=== PATIENT | male | born 1960 | race Caucasian/White ===

== ENCOUNTER 2021-10-26 18:20 | Emergency (ER) | payer OTHER ==
--- OUTSIDE RECORDS SUMMARY | 2021-10-26 18:23 | XMS REPORT | Continuity of Care Document ---
:1960 Author Organization [facility] t Address [address] [place] [address] Care Team Providers Name Role Phone Pcp, Patient Does Not Have A Primary Care Physician [id number] Anne Marie Gautam RN Attending Clinician Unavailable Only, Ang Db Test Attending Clinician Unavailable Mesfin Morales Attending Clinician MESFIN ROUSSEAU Attending Clinician Unavailable CHAVA DELUCA Attending Clinician Unavailable Payers Payer Name Policy Type Policy Number Effective Date Expiration Date S ource Problems This patient has no known problems. Allergies, Adverse Reactions, Alerts Allergy Allergy Status Severity Reaction(s) Onset Inactive Treating Comm ents Source Name Type Date Date Clinician NO KNOWN Drug Active [facility]IE Class [facility] of [facility] Social History Social Habit Start Date Stop Date Quantity Comments Source Exposure to Yes [facility] SARS-CoV-2 (event) [facility] Sex Assigned At [birth year] [facility] 00:00:00 00:00:00 [facility] Smoking Status Start Date Stop Date Source Unknown if ever smoked [facility] Medications This patient has no known medications. Immunizations Ordered Filled Immunization Date Status Comments Mariela e Immunization Name Name SARS-COV-2 COVID-19 2020-06-30 Completed Unive rsity of [facility]ER [facility] 00:00:00 [facility] SARS-COV-2 COVID-19 2020-06-30 Completed Unive rsity of PFIZER VACCINE 00:00:00 [facility] SARS-COV-2 COVID-19 2020-06-10 Completed Unive rsity of PFIZER VACCINE 00:00:00 [facility] SARS-COV-2 COVID-19 2020-06-10 Completed Unive rsity of PFIZER VACCINE 00:00:00 [facility] Procedures This patient has no known procedures. Encounters Start End Encounter Admission Attending Care Care Encounter Source Date/Time Date/Time Type Type Clinicians Facility Department ID 2021-04-17 2021-04-17 Letter DainYULY canchola [id number] [facility] 00:00:00 00:00:00 (Out) Anne Marie DALAL [id number] it y of [facility] [id number] Emery as [id number] [address] 2021-04-16 2021-04-16 Laboratory Only, Ang Db Test [facility] [id number] Univers 12:00:00 12:15:00 Only Chan Mesfin [facility] [id number] ity [facility] [id number] Emery as ZACHARY?BLEA [id number] [address] MED[facility] 2021-04-16 2021-04-16 Outpatient Hortensia ROUSSEAU [facility] [id number] Univers 12:00:00 12:00:00 MESFIN [facility] 2020-06-30 2020-06-30 Outpatient Hortensia DELUCA [facility] [id number] Univers 13:00:00 12:23:55 CHAVA [facility] Results This patient has no known results.
[2021-10-26] MEDS ORDERED: HYDROCODONE/APAP 5/325 MG TAB ONE (18:54)
--- NOTE | 2021-10-26 19:53 | RAD REPORT ---
EXAM DESCRIPTION: RAD - Nasal Bones - 10/26/2021 7:36 pm CLINICAL HISTORY: Facial pain FINDINGS: An acute nasal bone fracture is not visualized
--- NOTE | 2021-10-26 20:05 | ER ---
Nurse's Notes [facility] Name: Vaughn Pham Age: 61 yrs Sex: Male : 1960 Arrival Date: 10/26/2021 Time: 18:22 Bed 17 Private MD: Diagnosis: Other specified disorders of nose and nasal sinuses;Contusion of nose Presentation: 10/26 18:29 Chief complaint: Patient states: "I was tightening up a bedpost and it came up and ss popped me in the nose. I heard a crack." No active bleeding noted at this time. Pt applied pressure with towel. Moderate amount of blood noted to towel. Coronavirus screen: Client denies travel out of the [place] in the last 14 days. Ebola Screen: Patient denies exposure to infectious person. Patient denies travel to an Ebola-affected area in the 21 days before illness onset. Initial Sepsis Screen: Does the patient meet any 2 criteria? No. Patient's initial sepsis screen is negative. Does the patient have a suspected source of infection? No. Patient's initial sepsis screen is negative. Risk Assessment: Do you want to hurt yourself or someone else? Patient reports no desire to harm self or others. Onset of symptoms was October 26, 2021. 18:29 Method Of Arrival: Ambulatory ss 18:29 Acuity: VINOD 4 ss Triage Assessment: 18:30 General: Appears in no apparent distress. Behavior is calm, cooperative, appropriate bp for age. Pain: Complains of pain in nose. EENT: NOSE SWOLLEN/RED, MINIMAL BLEEDING. Neuro: No deficits noted. Cardiovascular: No deficits noted. Respiratory: No deficits noted. GI: No signs and/or symptoms were reported involving the gastrointestinal system. : No signs and/or symptoms were reported regarding the genitourinary system. Derm: No deficits noted. Musculoskeletal: No deficits noted. Historical: - Allergies: 18:33 No Known Allergies; ss - Immunization history:: Adult Immunizations up to date. - Social history:: Smoking status: Patient denies any tobacco usage or history of. Screenin:45 Abuse screen: Denies threats or abuse. Denies injuries from another. Nutritional bp screening: No deficits noted. Tuberculosis screening: No symptoms or risk factors identified. Fall Risk None identified. Assessment: 18:45 General: SEE TRIAGE NOTE. bp 19:15 Reassessment: Patient appears in no apparent distress at this time. Patient and/or jb4 family updated on plan of care and expected duration. Pain level reassessed. Patient is alert, oriented x 3, equal unlabored respirations, skin warm/dry/pink. 20:06 Reassessment: Patient appears in no apparent distress at this time. Patient and/or jb4 family updated on plan of care and expected duration. Pain level reassessed. Patient is alert, oriented x 3, equal unlabored respirations, skin warm/dry/pink. Vital Signs: 18:29 BP 141 / 89; Pulse 103; Resp 16; Temp 97.9(TE); Pulse Ox 97% on R/A; Weight 92.99 kg; ss Height 5 ft. 9 in. (175.26 cm); Pain 4/10; 20:15 BP 148 / 98; Pulse 87; Resp 16; Pulse Ox 98% on R/A; jb4 18:29 Body Mass Index 30.27 (92.99 kg, 175.26 cm) ss [place] Score: 18:33 Eye Response: spontaneous(4). Verbal Response: oriented(5). Motor Response: obeys snw commands(6). Total: 15. 18:34 Eye Response: spontaneous(4). Verbal Response: oriented(5). Motor Response: obeys snw commands(6). Total: 15. ED Course: 18:22 Patient arrived in ED. hb 18:22 Wendi Calle F[facility]-C [facility]. snw 18:22 Joshua Erwin MD is Attending Physician. snw 18:33 Jevon Vernon, ANTONI is Primary Nurse. bp 18:33 Triage completed. ss 18:33 Arm band placed on right wrist. ss 18:45 Patient has correct armband on for positive identification. Bed in low position. Call bp light in reach. Side rails up X2. Adult w/ patient. 19:38 Nasal Bones XRAY In Process Unspecified. EDMS 20:15 No provider procedures requiring assistance completed. Patient did not have IV access jb4 during this emergency room visit. Administered Medications: 18:45 Drug: HYDROcodone-acetaminophen 5 mg-325 mg 1 tabs Route: PO; bp Medication: 18:45 VIS not applicable for this client. bp Outcome: 20:05 Discharge ordered by MD. pizarro 20:15 Discharged to home ambulatory. jb4 20:15 Condition: stable 20:15 Discharge instructions given to patient, Instructed on discharge instructions, follow up and referral plans. medication usage, Demonstrated understanding of instructions, follow-up care, medications, Prescriptions given X 1. 20:17 Patient left the ED. jb4 Signatures: Dispatcher [employer] EDMS Wendi Calle, PREHEMMER-C PREHEMMER-Csnw Ivis Mckeon RN RN Adrianna Gambino RN RN George Lindsey RN RN jb4 Jevon Vernon RN RN bp Corrections: (The following items were deleted from the chart) 18:34 18:33 Home Meds: None; [facility]
--- NOTE | 2021-10-26 20:06 | EDPHYS ---
Physician Documentation [facility] Name: Vaughn Pham Age: 61 yrs Sex: Male : 1960 Arrival Date: 10/26/2021 Time: 18:22 Bed 17 Private MD: ED Physician Joshua Erwin HPI: 10/26 18:33 This 61 yrs old Male presents to ER via Ambulatory with complaints of nasal fracture. snw 18:33 The patient or guardian reports injury, swelling, tenderness. The complaints affect the snw nose. Context of injury: The problem was sustained at home, resulted from a direct blow, a heavy object. Onset: The symptoms/episode began/occurred suddenly, just prior to arrival. Associated signs and symptoms: The patient has no apparent associated signs or symptoms. Severity of symptoms: At their worst the symptoms were moderate, just prior to arrival. The patient has not experienced similar symptoms in the past. The patient has not recently seen a physician. up to date on tetanus. Historical: - Allergies: 18:33 No Known Allergies; ss - Immunization history:: Adult Immunizations up to date. - Social history:: Smoking status: Patient denies any tobacco usage or history of. ROS: 18:32 Constitutional: Negative for fever, chills, and weight loss, Eyes: Negative for injury, snw pain, redness, and discharge, Neck: Negative for injury, pain, and swelling, Cardiovascular: Negative for chest pain, palpitations, and edema, Respiratory: Negative for shortness of breath, cough, wheezing, and pleuritic chest pain, Abdomen/GI: Negative for abdominal pain, nausea, vomiting, diarrhea, and constipation, Back: Negative for injury and pain, : Negative for injury, bleeding, discharge, and swelling, MS/Extremity: Negative for injury and deformity, Skin: Negative for injury, rash, and discoloration, Neuro: Negative for headache, weakness, numbness, tingling, and seizure, Psych: Negative for depression, anxiety, suicide ideation, homicidal ideation, and hallucinations. 18:32 ENT: Positive for injury or acute deformity, contusion, nose bleed. Exam: 18:32 Constitutional: This is a well developed, well nourished patient who is awake, alert, snw and in no acute distress. Eyes: Pupils equal round and reactive to light, extra-ocular motions intact. Lids and lashes normal. Conjunctiva and sclera are non-icteric and not injected. Cornea within normal limits. Periorbital areas with no swelling, redness, or edema. ENT: Nares patent. No nasal discharge, no septal abnormalities noted. Tympanic membranes are normal and external auditory canals are clear. Oropharynx with no redness, swelling, or masses, exudates, or evidence of obstruction, uvula midline. Mucous membranes moist. Neck: Trachea midline, no thyromegaly or masses palpated, and no cervical lymphadenopathy. Supple, full range of motion without nuchal rigidity, or vertebral point tenderness. No Meningismus. Chest/axilla: Normal chest wall appearance and motion. Nontender with no deformity. No lesions are appreciated. Cardiovascular: Regular rate and rhythm with a normal S1 and S2. No gallops, murmurs, or rubs. Normal PMI, no JVD. No pulse deficits. Respiratory: Lungs have equal breath sounds bilaterally, clear to auscultation and percussion. No rales, rhonchi or wheezes noted. No increased work of breathing, no retractions or nasal flaring. Abdomen/GI: Soft, non-tender, with normal bowel sounds. No distension or tympany. No guarding or rebound. No evidence of tenderness throughout. Back: No spinal tenderness. No costovertebral tenderness. Full range of motion. Skin: Warm, dry with normal turgor. Normal color with no rashes, no lesions, and no evidence of cellulitis. MS/ Extremity: Pulses equal, no cyanosis. Neurovascular intact. Full, normal range of motion. Neuro: Awake and alert, GCS 15, oriented to person, place, time, and situation. Cranial nerves II-XII grossly intact. Motor strength 5/5 in all extremities. Sensory grossly intact. Cerebellar exam normal. Normal gait. Psych: Awake, alert, with orientation to person, place and time. Behavior, mood, and affect are within normal limits. 18:32 Head/face: Noted is swelling, that is moderate, tenderness, that is mild, of the nose, no septal hematoma or visible cartilage . Vital Signs: 18:29 BP 141 / 89; Pulse 103; Resp 16; Temp 97.9(TE); Pulse Ox 97% on R/A; Weight 92.99 kg; ss Height 5 ft. 9 in. (175.26 cm); Pain 4/10; 20:15 BP 148 / 98; Pulse 87; Resp 16; Pulse Ox 98% on R/A; jb4 18:29 Body Mass Index 30.27 (92.99 kg, 175.26 cm) ss [place] Score: 18:33 Eye Response: spontaneous(4). Verbal Response: oriented(5). Motor Response: obeys snw commands(6). Total: 15. 18:34 Eye Response: spontaneous(4). Verbal Response: oriented(5). Motor Response: obeys snw commands(6). Total: 15. MDM: 18:22 Patient medically screened. wendie 18:34 Data reviewed: vital signs, nurses notes. Counseling: I had a detailed discussion with snw the patient and/or guardian regarding: the presence of at least one elevated blood pressure reading (>120/80) during this emergency department visit, radiology results, the need for outpatient follow up, to return to the emergency department if symptoms worsen or persist or if there are any questions or concerns that arise at home. Special discussion: Based on the history and exam findings, there is no indication for further emergent testing or inpatient evaluation. I discussed with the patient/guardian the need to see the primary care provider for further evaluation of the symptoms. 10/26 18:31 Order name: Nasal Bones XRAY; Complete Time: 20:01 snw Administered Medications: 18:45 Drug: HYDROcodone-acetaminophen 5 mg-325 mg 1 tabs Route: PO; bp Disposition Summary: 10/26/21 20:05 Discharge Ordered Location: Home snw Condition: Stable snw Diagnosis - Other specified disorders of nose and nasal sinuses snw - Contusion of nose snw Followup: snw - With: Emergency Department - When: As needed - Reason: Worsening of condition Followup: snw - With: Private Physician - When: 2 - 3 days - Reason: Recheck today's complaints, Continuance of care, Re-evaluation by your physician Discharge Instructions: - Discharge Summary Sheet snw - Contusion snw - Nasal Fracture snw - RICE Therapy for Routine Care of Injuries snw Forms: - Medication Reconciliation Form snw - Thank You Letter snw - Antibiotic Education snw - Prescription Opioid Use snw Prescriptions: - Tramadol 50 mg Oral Tablet - take 1 tablet by ORAL route every 8 hours as needed; 12 tablet; Refills: 0, snw Product Selection Permitted Signatures: Dispatcher [employer] EDMS Joshua Erwin MD MD cha Waters, Shelly, DIANNE-C TELECOMMUNICATIONS CLERK-Ivis Martin RN RN ss Peltier, Brian, RN RN bp Corrections: (The following items were deleted from the chart) 18:34 18:33 Home Meds: None; [facility] 18:36 18:32 Head/face: Noted is swelling, that is moderate, tenderness, that is mild, of the snw nose, snw
[2021-10-26 21:15] VITALS: TEMP 97.9
[2021-10-26 21:17] VITALS: BP 148/98; O2SAT 98
== END 2021-10-26 20:17 | disposition home or self-care (01) ==
LOC: ER 18:20
DX: S00.33XA Contusion of nose, initial encounter (principal); J34.89 Other specified disorders of nose and nasal sinuses
CPT/HCPCS: 70160; 99283

== ENCOUNTER 2023-12-16 06:10 | Inpatient (IN) | payer OTHER ==
[2023-12-16] MEDS ORDERED: ONDANSETRON 4 MG/2 ML VIAL ONE (06:23)
[2023-12-16] MEDS ORDERED: HYDROMORPHONE HCL 1 MG/ML INJ ONE ×2 (06:24→07:58)
[2023-12-16] MEDS ORDERED: NA CHLORIDE 0.9% 1,000 ML ONE (06:24)
[2023-12-16 06:40] LABS: Absolute Basophils 0.1 K/uL (0-0.5); Absolute Eosinophils 0.1 K/uL (0-0.5); Absolute Lymphocytes (CBC) 1.8 K/uL (0.7-4.9); Absolute Monocytes 1.6 K/uL (0.1-1.3); Basophils % 0.3 % (0-1.3); Eosinophils % 0.6 % (0-4.4); Hematocrit 53.3 % (39.6-49.0); Hemoglobin 17.6 g/dL (13.6-17.9); Lymphocytes % 9.8 % (15.3-44.8); MCH 30.1 pg (27.0-35.0); MCV 91.4 fL (80-100); MPV 9.3 fL (7.6-11.3); Monocytes % 8.8 % (3.3-12.3); Neutrophils % 80.5 % (41.7-73.7); Nucleated Red Blood Cells % 0.1 % (0-0); Platelets 272 thou/uL (152-406); RBC Red Blood Cell Count 5.83 M/uL (4.33-5.43); Red Cell Distribution Width 13.4 % (12.1-15.2)
[2023-12-16 07:01] LABS: Albumin 4.5 g/dL (3.4-5.0); Albumin/Globulin Ratio 1.1 (1.1-1.8); Anion Gap 9.9 mEq/L (5.0-15.0); Bilirubin Total 0.8 mg/dL (0.2-1.0); Potassium 3.9 mEq/L (3.5-5.1); Protein, Total 8.5 g/dL (6.4-8.2); Troponin High Sensitivity 3.9 pg/mL (<58.9)
--- NOTE | 2023-12-16 07:29 | RAD REPORT ---
EXAMINATION: CT ABDOMEN AND PELVIS WITH CONTRAST CLINICAL INDICATION: Abdominal pain TECHNIQUE: CT abdomen and pelvis was performed, after the administration of 100 cc Isovue-300.. Sagit damon and coronal reconstructions were obtained. One or more of the following dose reduction techniques were used: Automated exposure control, adjustment of the mA and/or kV according to patien t size, and/or iterative reconstruction. Unless otherwise specified, incidental findings do not require dedicated imaging follow-up. [id number]. Oral contrast was not given which limits evaluation of b owel and appendix. COMPARISON: November 2023 FINDINGS: The liver, spleen, pancreas, and adrenals appear unremarkable. Small bilateral renal cysts. No hydronephrosis There is no evidence of diverticulitis. Normal appendix. Mild to moderate prostatic enlargement.. Small umbilical hernia. Spondylosis lower lumbar spine. Moderate amount of stool within the colon : IMPRESSION: Moderate amount of stool within the colon
[2023-12-16] MEDS ORDERED: NA CHLORIDE 0.9% 100 ML ONE (07:58)
[2023-12-16] MEDS ORDERED: CEFTRIAXONE 1000 MG/VIAL ONE (07:58)
--- NOTE | 2023-12-16 08:00 | EDPHYS ---
Physician Documentation [facility] Name: Vaughn Pham Age: 63 yrs Sex: Male : 1960 Arrival Date: 12/16/2023 Time: 06:10 Bed 8 Private MD: ED Physician Martín Flores HPI: 12/15 06:28 This 63 yrs old Male presents to ER via Wheelchair with complaints of abdominal pain. sp3 06:28 63-year-old male with history of hypertension and recent pancreatitis admitted on sp3 12/12/2023 presents to the ED for recurrent epigastric abdominal pain severe in nature similar to his prior episode. Unknown as to his exact cause of pancreatitis. Patient states he does not consume alcohol. CT scan on prior visit was unremarkable however lipase was 300+. Patient denies any headache, fever, chest pain, shortness of breath, lower abdominal pain, focal neurological deficit, known sick contacts, travel history or any other signs or symptoms on ROS at this time.. 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 - Infectious Disease History:: Denies. - Social history:: Smoking status: Patient denies any tobacco usage or history of. Patient uses alcohol, only on a social basis. street drugs, marijuana. ROS: 06:30 Constitutional: Negative for fever, chills, and weight loss, Eyes: Negative for injury, sp3 pain, redness, and discharge, ENT: Negative for injury, pain, and discharge, Neck: Negative for injury, pain, and swelling, Cardiovascular: Negative for chest pain, palpitations, and edema, Respiratory: Negative for shortness of breath, cough, wheezing, and pleuritic chest pain, Back: Negative for injury and pain, MS/Extremity: Negative for injury and deformity, Skin: Negative for injury, rash, and discoloration, Neuro: Negative for headache, weakness, numbness, tingling, and seizure, Psych: Negative for depression, anxiety, suicide ideation, homicidal ideation, and hallucinations, Allergy/Immunology: Negative for hives, rash, and allergies, Endocrine: Negative for neck swelling, polydipsia, polyuria, polyphagia, and marked weight changes, Hematologic/Lymphatic: Negative for swollen nodes, abnormal bleeding, and unusual bruising, 06:30 All other systems are negative, Exam: 06:30 Constitutional: This is a well developed, well nourished patient who is awake, alert, sp3 and in no acute distress. Head/Face: Normocephalic, atraumatic. Eyes: Pupils equal round and reactive to light, extra-ocular motions intact. Lids and lashes normal. Conjunctiva and sclera are non-icteric and not injected. Cornea within normal limits. Periorbital areas with no swelling, redness, or edema. Neck: Trachea midline, no thyromegaly or masses palpated, and no cervical lymphadenopathy. Supple, full range of motion without nuchal rigidity, or vertebral point tenderness. No Meningismus. Chest/axilla: Normal chest wall appearance and motion. Nontender with no deformity. No lesions are appreciated. Cardiovascular: Regular rate and rhythm with a normal S1 and S2. No gallops, murmurs, or rubs. Normal PMI, no JVD. No pulse deficits. Respiratory: Lungs have equal breath sounds bilaterally, clear to auscultation and percussion. No rales, rhonchi or wheezes noted. No increased work of breathing, no retractions or nasal flaring. Back: No spinal tenderness. No costovertebral tenderness. Full range of motion. Skin: Warm, dry with normal turgor. Normal color with no rashes, no lesions, and no evidence of cellulitis. MS/ Extremity: Pulses equal, no cyanosis. Neurovascular intact. Full, normal range of motion. Neuro: Awake and alert, GCS 15, oriented to person, place, time, and situation. Cranial nerves II-XII grossly intact. Motor strength 5/5 in all extremities. Sensory grossly intact. Cerebellar exam normal. Normal gait. Psych: Awake, alert, with orientation to person, place and time. Behavior, mood, and affect are within normal limits. 06:40 ECG was reviewed by the Attending Physician. EKG demonstrates normal sinus rhythm at 80 sp3 bpm with normal intervals, normal QRS, normal axis, normal ST's ST segments without evidence of acute ischemia. Vital Signs: 06:30 BP 180 / 117; Pulse 72; Resp 18; Temp 97.6; Pulse Ox 100% ; Weight 83.91 kg; Height 5 bm8 ft. 9 in. ; Pain 7/10; 07:38 BP 192 / 98; Pulse 64; Resp 18; Pulse Ox 100% on R/A; ph 08:30 BP 154 / 96; Pulse 89; Resp 18; Pulse Ox 98% on R/A; ph 09:30 BP 106 / 65; Pulse 83; Resp 16; Pulse Ox 97% on R/A; ph 10:54 BP 115 / 69; Pulse 75; Resp 18; Temp 97.5; Pulse Ox 95% on R/A; ph 06:30 Body Mass Index 27.32 (83.91 kg, 175.26 cm) bm8 06:30 Pain Scale: Adult bm8 Sandy Coma Score: 06:31 Eye Response: spontaneous(4). Motor Response: obeys commands(6). Verbal Response: bm8 oriented(5). Total: 15. MDM: 06:15 Patient medically screened. sp3 06:31 Data reviewed: vital signs, nurses notes, old medical records, lab test result(s), EKG, sp3 radiologic studies. ED course: 63-year-old male with PMH above now with epigastric pain recurrent in nature. Differential diagnosis is broad and includes recurrent pancreatitis, other biliary pathology, gastritis, colitis, acute coronary syndrome, dehydration, electrolyte abnormality, among others. Workup will include laboratory values, EKG, CT scan of the abdomen pelvis with IV contrast and general supportive care with pain and nausea medication as indicated. Disposition pending workup and patient course. Patient will be signed out to daytime physician at 7 AM for final reevaluation and disposition.. 07:57 Differential diagnosis: bowel obstruction, diverticulitis, gastritis, gastroesophageal rn reflux disease, non-specific abd pain, pancreatitis, Peptic Ulcer Disease, Perf. Duodenal Ulcer, Perf. Gastric Ulcer. Consideration of Admission/Observation Patient was admitted/placed on observation. Escalation of care including admission/observation considered. Counseling: I had a detailed discussion with the patient and/or guardian regarding the historical points, exam findings, and any diagnostic results supporting the discharge/admit diagnosis, lab results, radiology results, the need for further work-up and treatment in the hospital. Response to treatment: the patient's symptoms have mildly improved after treatment, and as a result, I will admit patient. 12/15 06:15 Order name: CBC with Diff; Complete Time: 07:44 sp3 12/15 06:15 Order name: CMP; Complete Time: 07:44 sp3 12/15 06:15 Order name: Lipase; Complete Time: 07:44 sp3 12/15 06:15 Order name: Urinalysis w/ reflexes sp3 12/15 06:15 Order name: Lactate w/ 2H reflex if indic.; Complete Time: 07:44 sp3 12/15 06:15 Order name: Troponin High Sensitivity; Complete Time: 07:44 sp3 12/15 08:59 Order name: Ghost Lactate-NO COLLECT Timer EDMS 12/15 09:36 Order name: Urinalysis w/ reflexes EDMS 12/15 09:39 Order name: Basic Metabolic Panel EDMS 12/15 09:39 Order name: Basic Metabolic Panel EDMS 12/15 09:39 Order name: Basic Metabolic Panel EDMS 12/15 09:39 Order name: Basic Metabolic Panel EDMS 12/15 09:39 Order name: Basic Metabolic Panel EDMS 12/15 09:39 Order name: Basic Metabolic Panel EDMS 12/15 09:39 Order name: CBC with Automated Diff EDMS 12/15 09:39 Order name: CBC with Automated Diff EDMS 12/15 09:39 Order name: CBC with Automated Diff EDMS 12/15 09:39 Order name: CBC with Automated Diff EDMS 12/15 09:39 Order name: CBC with Automated Diff EDMS 12/15 09:39 Order name: CBC with Automated Diff EDMS 12/15 09:39 Order name: Lipid Profile EDMS 12/15 09:39 Order name: Lipid Profile EDMS 12/15 09:39 Order name: Magnesium EDMS 12/15 09:39 Order name: Magnesium EDMS 12/15 09:39 Order name: Magnesium EDMS 12/15 09:39 Order name: Magnesium EDMS 12/15 09:39 Order name: Magnesium EDMS 12/15 09:39 Order name: Magnesium EDMS 12/15 09:39 Order name: Phosphorus EDMS 12/15 09:39 Order name: Phosphorus EDMS 12/15 09:39 Order name: Phosphorus EDMS 12/15 09:39 Order name: Phosphorus EDMS 12/15 09:39 Order name: Phosphorus EDMS 12/15 09:39 Order name: Phosphorus EDMS 12/15 11:17 Order name: Lactate Sepsis 2 HR Follow-up EDMS 12/15 06:15 Order name: CT Abd/Pelvis - IV Contrast Only; Complete Time: 07:44 sp3 12/15 06:15 Order name: IV Saline Lock; Complete Time: 06:30 sp3 12/15 06:15 Order name: Labs collected and sent; Complete Time: 06:30 sp3 12/15 06:15 Order name: EKG - Nurse/Tech; Complete Time: 06:15 sp3 12/15 06:15 Order name: NPO; Complete Time: 06:15 sp3 Administered Medications: 06:29 Drug: NS 0.9% IV 1000 ml IV at 1 bolus Per protocol; 1000 mL bolus Route: IV; Rate: 1 bm8 bolus; Site: left antecubital; 08:00 Follow up: Response: No adverse reaction; IV Status: Completed infusion; IV Intake: ph 1000ml 06:29 Drug: Ondansetron IVP 4 mg IVP once; over 2 minutes Route: IVP; Site: left antecubital; bm8 07:05 Follow up: Response: No adverse reaction ph 06:29 Drug: HYDROmorphone IVP 1 mg IVP once Route: IVP; Site: left antecubital; bm8 07:05 Follow up: Response: No adverse reaction ph 08:05 Drug: HYDROmorphone IVP 1 mg IVP once Route: IVP; Site: left antecubital; bp 08:30 Follow up: Response: No adverse reaction; Pain is decreased ph 08:06 Drug: Rocephin IV 1 grams IV at calculated rate once; Given slow IV push per pharmacy bp instructions Route: IV; Rate: calculated rate; Site: left antecubital; 08:30 Follow up: Response: No adverse reaction; IV Status: Completed infusion ph Disposition Summary: 12/16/23 07:59 Hospitalization Ordered Notes: Hospitalization Status: Inpatient Admission rn Provider: Miguel Mark rn Condition: Stable rn Problem: an ongoing problem rn Symptoms: have improved rn Bed/Room Type: Standard rn Location: Telemetry/MedSurg (observation)(12/16/23 12:24) bd Room Assignment: 407(12/16/23 12:43) bd Diagnosis - Idiopathic acute pancreatitis without necrosis or infection rn - Constipation, unspecified rn - Abdominal pain, unspecified rn Forms: - Medication Reconciliation Form rn - SBAR form rn - Leadership Thank You Letter rn Signatures: Dispatcher [employer] EDNJ Teagan Rueda Martín Pritchett MD MD rn Peltier, Brian, RN RN Ayanna Fishman RN RN lg3 Colleen Oliveira MD MD sp3 Jonathan Clifford RN RN bm8 Esme Lozano RN ph Corrections: (The following items were deleted from the chart) 06:16 06:15 Abdomen Pelvis W Con+CT.RAD.BRZ ordered. EDNJ EDNJ :44 07:59 Telemetry/MedSurg (Inpatient) rn bd 09:44 07:59 rn bd 12:24 09:44 BR ER HOLD bd bd 12:24 09:44 ERHOLD- bd bd 12:43 12:24 209 bd bd
--- NOTE | 2023-12-16 08:00 | ER ---
Nurse's Notes [facility] Name: Vaughn Pham Age: 63 yrs Sex: Male : 1960 Arrival Date: 12/16/2023 Time: 06:10 Bed 8 Private MD: Diagnosis: Idiopathic acute pancreatitis without necrosis or infection;Constipation, unspecified;Abdominal pain, unspecified Presentation: 12/15 06:19 Chief complaint: Patient states: recently diagnosed with pancreatitis. i was admitted lg3 upstairs and got discharged. tonight i became weak, sweaty, shaky, clammy, nauseous and pain began again. Coronavirus screen: Client denies travel out of the [place] in the last 14 days. At this time, the client does not indicate any symptoms associated with coronavirus-19. Ebola Screen: No symptoms or risks identified at this time. Risk Assessment: Do you want to hurt yourself or someone else? Patient reports no desire to harm self or others. Onset of symptoms was December 16, 2023. 06:19 Method Of Arrival: Wheelchair lg3 06:19 Acuity: VINOD 3 lg3 07:30 Initial Sepsis Screen: Does the patient meet any 2 criteria? No. Patient's initial ph sepsis screen is negative. Does the patient have a suspected source of infection? No. Patient's initial sepsis screen is negative. Triage Assessment: 06:20 General: Appears in no apparent distress. uncomfortable, Behavior is calm, cooperative. lg3 Pain: Complains of pain in abdomen. EENT: No deficits noted. No signs and/or symptoms were reported regarding the EENT system. Neuro: No deficits noted. Brooks Agitation-Sedation Scale (RASS): 0 - Alert and Calm Level of Consciousness is awake, alert, obeys commands, Oriented to person, place, time, situation. Cardiovascular: No deficits noted. Denies chest pain, shortness of breath, Capillary refill < 3 seconds Clubbing of nail beds is absent JVD is absent Patient's skin is warm and dry. Respiratory: No deficits noted. Airway is patent Respiratory effort is even, unlabored, Respiratory pattern is regular, symmetrical. GI: Abdomen is round non-distended, Reports upper abdominal pain, cramping, nausea. : No deficits noted. No signs and/or symptoms were reported regarding the genitourinary system. Musculoskeletal: Circulation, motion, and sensation intact. Range of motion: intact in all extremities. 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 - Infectious Disease History:: Denies. - Social history:: Smoking status: Patient denies any tobacco usage or history of. Patient uses alcohol, only on a social basis. street drugs, marijuana. Screenin:31 [facility] ED Fall Risk Assessment (Adult) History of falling in the last 3 months, bm8 including since admission No falls in past 3 months (0 pts) Confusion or Disorientation No (0 pts) Intoxicated or Sedated No (0 pts) Impaired Gait No (0 pts) Mobility Assist Device Used No (0 pt) Altered Elimination No (0 pt) Score/Fall Risk Level 0 - 2 = Low Risk Oriented to surroundings, Maintained a safe environment, Educated pt \T\ family on fall prevention, incl call for assistance when getting out of bed, Assessed \T\ reinforced patient's understanding of fall precautions, Hourly rounding (assess needs \T\ fall precautionary measures) done, Used ambulatory aids as needed (educated on \T\ assisted with), Used gait belt as appropriate. Abuse screen: Denies threats or abuse. Nutritional screening: No deficits noted. Tuberculosis screening: No symptoms or risk factors identified. Assessment: 06:31 Reassessment: Patient and/or family updated on plan of care and expected duration. Pain bm8 level reassessed. Patient is alert, oriented x 3, equal unlabored respirations, skin warm/dry/pink. General: Appears in no apparent distress. uncomfortable, Behavior is calm, cooperative, appropriate for age. Pain: Complains of pain in epigastric area Pain does not radiate. Pain currently is 7 out of 10 on a pain scale. Quality of pain is described as aching, crampy. Neuro: Level of Consciousness is awake, alert, obeys commands, Oriented to person, place, time, situation, Appropriate for age. Cardiovascular: Denies chest pain, Capillary refill < 3 seconds Patient's skin is warm and dry. Respiratory: Airway is patent Trachea midline Respiratory effort is even, unlabored, Respiratory pattern is regular, symmetrical. GI: Abdomen is flat, non-distended, Bowel sounds present X 4 quads. Abdomen is tender to palpation in epigastric area Reports upper abdominal pain, nausea, Pain is 7 out of 10 on a pain scale. vomiting. : No signs and/or symptoms were reported regarding the genitourinary system. EENT: No signs and/or symptoms were reported regarding the EENT system. Derm: No signs and/or symptoms reported regarding the dermatologic system. Musculoskeletal: No signs and/or symptoms reported regarding the musculoskeletal system. 10:56 Reassessment: Patient appears in no apparent distress at this time. Patient and/or ph family updated on plan of care and expected duration. Pain level reassessed. Patient is alert, oriented x 3, equal unlabored respirations, skin warm/dry/pink. Patient states feeling better. Patient states symptoms have improved. Vital Signs: 06:30 BP 180 / 117; Pulse 72; Resp 18; Temp 97.6; Pulse Ox 100% ; Weight 83.91 kg; Height 5 bm8 ft. 9 in. ; Pain 7/10; 07:38 BP 192 / 98; Pulse 64; Resp 18; Pulse Ox 100% on R/A; ph 08:30 BP 154 / 96; Pulse 89; Resp 18; Pulse Ox 98% on R/A; ph 09:30 BP 106 / 65; Pulse 83; Resp 16; Pulse Ox 97% on R/A; ph 10:54 BP 115 / 69; Pulse 75; Resp 18; Temp 97.5; Pulse Ox 95% on R/A; ph 06:30 Body Mass Index 27.32 (83.91 kg, 175.26 cm) bm8 06:30 Pain Scale: Adult bm8 Rancho Coma Score: 06:31 Eye Response: spontaneous(4). Motor Response: obeys commands(6). Verbal Response: bm8 oriented(5). Total: 15. ED Course: 06:10 Patient arrived in ED. lg3 06:13 Colleen Oliveira MD is Attending Physician. sp3 06:15 Jonathan Clifford, RN is Primary Nurse. bm8 06:20 Triage completed. lg3 06:20 Arm band placed on right wrist. lg3 06:31 Patient has correct armband on for positive identification. Bed in low position. Call bm8 light in reach. Adult w/ patient. Client placed on continuous cardiac and pulse oximetry monitoring. NIBP monitoring applied. Pulse ox on. NIBP on. Door closed. Noise minimized. Warm blanket given. Pillow given. Head of bed elevated. 06:31 No provider procedures requiring assistance completed. Initial lab(s) drawn, by ED bm8 staff, sent to lab. EKG done, by ED staff, reviewed by Colleen Oliveira MD. Inserted saline lock: 22 gauge in left antecubital area, using aseptic technique. Blood collected. Flushed with 10 mL NS. Patient maintains SpO2 saturation greater than 95% on room air. 07:01 Report given to Ba RN. bm8 07:06 CT Abd/Pelvis - IV Contrast Only In Process Unspecified. EDMS 07:56 Attending Physician role handed off by Colleen Oliveira MD rn 07:56 Martín Flores MD is Attending Physician. rn 07:58 Miguel Mark is Hospitalizing Provider. rn 10:56 Patient admitted, IV remains in place. ph 11:48 1148 CM met with Mr. Pham at the bedside in the ED exam room. Patient identified by ane name and . Demographic sheet confirmed. Mr. Pham states he lives with his Wanda in a 2 story home. He reports that prior to admission, he performs ADLs independently and without physical limitations. No DME, HH, home oxygen or other medical services at this time. reports he has an MPOA in place. [place] PCP is Dr. Stephen Vanegas in [place], [place]. His preferred plan is to return home upon discharge and states his Wanda will transport him home. CM team will continue to follow and coordinate care during this hospital stay. Administered Medications: 06:29 Drug: NS 0.9% IV 1000 ml IV at 1 bolus Per protocol; 1000 mL bolus Route: IV; Rate: 1 bm8 bolus; Site: left antecubital; 08:00 Follow up: Response: No adverse reaction; IV Status: Completed infusion; IV Intake: ph 1000ml 06:29 Drug: Ondansetron IVP 4 mg IVP once; over 2 minutes Route: IVP; Site: left antecubital; bm8 07:05 Follow up: Response: No adverse reaction ph 06:29 Drug: HYDROmorphone IVP 1 mg IVP once Route: IVP; Site: left antecubital; bm8 07:05 Follow up: Response: No adverse reaction ph 08:05 Drug: HYDROmorphone IVP 1 mg IVP once Route: IVP; Site: left antecubital; bp 08:30 Follow up: Response: No adverse reaction; Pain is decreased ph 08:06 Drug: Rocephin IV 1 grams IV at calculated rate once; Given slow IV push per pharmacy bp instructions Route: IV; Rate: calculated rate; Site: left antecubital; 08:30 Follow up: Response: No adverse reaction; IV Status: Completed infusion ph Medication: 06:31 VIS not applicable for this client. bm8 Intake: 08:00 IV: 1000ml; Total: 1000ml. ph Outcome: 07:59 Decision to Hospitalize by Provider. rn 10:56 Admitted to ER Hold. Please see [facility] for further documentation. ph 10:56 Condition: stable 10:56 Instructed on the need for admit, 13:30 Patient left the ED. ph Signatures: Dispatcher [employer] EDMS Martín Flores MD MD rn Hall, Patricia, RN RN ph Peltier, Brian, RN RN bp Able, Lacie RN RN lg3 Colleen Oliveira MD MD sp3 Jonathan Clifford RN RN bm8 Amanda Wolff RN RN ane
--- NOTE | 2023-12-16 08:21 | P.HP ---
Certification for Inpatient Patient admitted to: Inpatient With expected LOS: >2 Midnights Patient will require the following post-hospital care: None Practitioner: I am a practitioner with admitting privileges, knowledge of patient current condition, hospital course, and medical plan of care. Services: Services provided to patient in accordance with Admission requirements found in Title 42 Section 412.3 of the Code of Federal Regulations Patient History Date of Service: 12/16/23 Reason for admission: Acute pancreatitis History of Present Illness: Vaughn Pham is a 63 year old male with Pmhx pancreatitis, global amnesia, Hypertensive disorder, marijuana abuse, and alcohol abuse who presents with severe abdominal pain. He was recently discharged last week after being successfully treated for acute pancreatitis with a normal lipase and tolerating PO diet. He reports drinking wine last night and eating a regular meal for the first time since discharge which started his severe abdominal pain. Labroratory evaluation lipase > 500 , lactic 2.1, and WBC 18.6. CT abd/pelvis reports FINDINGS: The liver, spleen, pancreas, and adrenals appear unremarkable. Small bilateral renal cysts. No hydronephrosis. There is no evidence of diverticulitis. Normal appendix. Mild to moderate prostatic enlargement.. Small umbilical hernia. Spondylosis lower lumbar spine. Moderate amount of stool within the colon. IMPRESSION: Moderate amount of stool within the colon Initial vitals BP 180 / 117; Pulse 72; Resp 18; Temp 97.6; Pulse Ox 100% Vaughn will be admitted to hospitalist service for further treatment of pancreatitis. Allergies No Known Allergies Allergy (Verified 12/12/23 04:35) Home Medications: Atorvastatin Calcium 20 mg PO BEDTIME 12/12/23 Duloxetine HCl 30 mg PO DAILY 12/12/23 Ondansetron [Zofran] 4 mg PO Q6H PRN 7 Days #30 tab 12/12/23 - Past Medical/Surgical History Diabetic: No -: Depression -: Hypertension -: Hyperlipidemia -: Shoulder surgery -: Finger Sx -: Arm Sx -: Back Sx - Family History Father -: Cancer Notes: Brain Cancer Mother -: Cancer Notes: Breast Cancer - Social History Smoking Status: Smoker current status UNK Alcohol use: Yes CD- Drugs: Yes Caffeine use: Yes Review of Systems Gastrointestinal: Abdominal Pain Physical Examination - Physical Exam General: Alert, In no apparent distress, Oriented x3 HEENT: Atraumatic, Normocephalic Neck: Supple, 2+ carotid pulse no bruit Respiratory: Clear to auscultation bilaterally, Normal air movement Cardiovascular: Normal pulses, Regular rate/rhythm, Normal S1 S2 Capillary refill: <2 Seconds Gastrointestinal: Normal bowel sounds, Soft and benign, Tenderness Musculoskeletal: No clubbing Integumentary: No rashes Neurological: Normal speech, Normal tone - Studies Laboratory Data (last 24 hrs) 12/16/23 12/16/23 06:22 06:22 WBC 18.60 H Hgb 17.6 Hct 53.3 H Plt Count 272 Sodium 137 Potassium 3.9 BUN 28 H Creatinine 1.54 H Glucose 151 H Total Bilirubin 0.8 AST 18 ALT 39 Alkaline Phosphatase 73 Lipase 565 H Assessment and Plan - Plan Assessment and Plan Acute Pancreatitis Leukocytosis Lactic acidosis -NPO -WBC 18.6, lactic acid 2.1, repeat 1.4 -Lipase 565, trend lipase -triglycerides 97, cholesterol 200, LDL 99, HDL 82 -Aggressive IVF -Rocephin given in the ED ALEKSANDER 2/2 dehydration -BUN/creatinine 28/1.54, GFR 51 -IV fluids Hyperglycemia -Serum glucose 151 -Monitor in AM labs Substance abuse Alcohol and marijuana abuse -cessation education provided -he reports he has stopped excessive drinking and marijuana use for several months -last drink of wine was last night HTN/HLD -hydralazine IV PRN - no PO meds while NPO Depression -supportive care - will hold PO medication at this time Global Amnesia -Supportive care DVT ppx heparin Full code Discharge Plan: Home - Advance Directives Does patient have a Living Will: No Does patient have a Durable POA for Healthcare: No
[2023-12-16] MEDS ORDERED: ONDANSETRON 4 MG/2 ML VIAL IV PRN (09:34)
[2023-12-16] MEDS ORDERED: HYDROMORPHONE HCL 1 MG/ML INJ IV PRN (09:38)
[2023-12-16] MEDS ORDERED: HYDRALAZINE HCL 20 MG/ML VIAL IV PRN (09:39)
[2023-12-16] MEDS: NA CHLORIDE 0.9% 1,000 ML IV SCH (10:00)
[2023-12-16 12:59] VITALS: BMI 27.3
[2023-12-16] MEDS: HEPARIN 5000 UNIT/ML 1 ML VIAL SQ SCH (17:23)
[2023-12-16 21:05] LABS: Sqamous Epithelial <5 /HPF (None Seen); Urine Bacteria None Seen /HPF (<20); Urine Bilirubin NEGATIVE (Negative); Urine Blood Negative (Negative); Urine Clarity Clear (Clear); Urine Color Yellow (Yellow); Urine Crystals Unidentified Few /HPF (None Seen); Urine Culture Reflex Order NOT NEEDED; Urine Glucose NEGATIVE (Negative); Urine Ketones NEGATIVE (Negative); Urine Microscopic Reflex YN ORDER UMIC; Urine Mucus 3+ /HPF (None Seen); Urine Nitrite NEGATIVE (Negative); Urine Protein TRACE (Negative); Urine RBC <5 /HPF (None Seen); Urine Urobilinogen Normal (Normal); Urine WBC <5 /HPF (<5); Urine pH 5.5 (5.0-7.0)
[2023-12-16 21:16] LABS: Specific Gravity > 1.030 (1.005-1.030)
[2023-12-17 06:56] LABS: Magnesium 2.2 mg/dL (1.6-2.4); Phosphorus 3.2 mg/dL (2.5-4.9)
[2023-12-17 08:04] LABS: Absolute Eosinophils 0.2 K/uL (0-0.5); Absolute Lymphocytes (CBC) 2.8 K/uL (0.7-4.9); Absolute Monocytes 0.8 K/uL (0.1-1.3); Absolute Neutrophil 6.6 K/uL (1.8-8.0); Basophils % 0.3 % (0-1.3); Eosinophils % 1.5 % (0-4.4); Hematocrit 46.3 % (39.6-49.0); Lymphocytes % 27.1 % (15.3-44.8); MCH 29.9 pg (27.0-35.0); MCHC 32.4 g/dL (32.0-36.0); MCV 92.3 fL (80-100); MPV 9.2 fL (7.6-11.3); Monocytes % 7.9 % (3.3-12.3); Neutrophils % 63.2 % (41.7-73.7); Platelets 203 thou/uL (152-406); RBC Red Blood Cell Count 5.02 M/uL (4.33-5.43); Red Cell Distribution Width 13.5 % (12.1-15.2)
--- NOTE | 2023-12-17 09:06 | P.PN ---
Date of Service: 12/17/23 Subjective Awake, feeling better, tolerating IVF Start CLD No new complaints ROS 10 point ROS as noted above, otherwise negative Physical Exam General: Alert and Oriented x3, NAD HEENT: Atraumatic, Normocephalic Neck: Supple, 2+ carotid pulse no bruit Respiratory: Clear to auscultation bilaterally, Normal air movement Cardiovascular: Normal pulses, Regular rate/rhythm, Normal S1 S2 Capillary refill: <2 Seconds Gastrointestinal: Soft and benign on palpation, Tenderness, ND, Musculoskeletal: No clubbing Integumentary: No rashes Neurological: Normal speech, Normal tone Vitals Reviewed Problem list Acute Pancreatitis Leukocytosis Lactic acidosis ALEKSANDER 2/2 dehydration Hyperglycemia Substance abuse Alcohol and marijuana abuse HTN/HLD Depression Global Amnesia Assessment and Plan Acute Pancreatitis Leukocytosis- resolved Lactic acidosis-resolved -NPO -Initial WBC 18.6, lactic acid 2.1, repeat 1.4 -Lipase 565, 527/ 289, trend lipase in the AM -triglycerides 97, cholesterol 200, LDL 99, HDL 82 -Continue Aggressive IVF -Rocephin given in the ED ALEKSANDER 2/2 dehydration- improved -BUN/creatinine 28/1.54, GFR 51 -IV fluids Hyperglycemia -Serum glucose 151 -Monitor in AM labs Substance abuse Alcohol and marijuana abuse -cessation education provided -he reports he has stopped excessive drinking and marijuana use for several months -last drink of wine was last night HTN/HLD -hydralazine IV PRN - no PO meds while NPO Depression -supportive care - will hold PO medication at this time Global Amnesia -Supportive care DVT ppx heparin Full code Discharge Plan: Home
[2023-12-17 20:09] VITALS: O2SAT 100
[2023-12-18 04:54] VITALS: BP 127/82; TEMP 97
[2023-12-18 06:38] LABS: Absolute Eosinophils 0.2 K/uL (0-0.5); Absolute Lymphocytes (CBC) 2.7 K/uL (0.7-4.9); Absolute Monocytes 0.8 K/uL (0.1-1.3); Absolute Neutrophil 6.6 K/uL (1.8-8.0); Basophils % 0.4 % (0-1.3); Eosinophils % 1.7 % (0-4.4); Hematocrit 46.9 % (39.6-49.0); Hemoglobin 15.4 g/dL (13.6-17.9); Lymphocytes % 26.2 % (15.3-44.8); MCH 30.2 pg (27.0-35.0); MCHC 32.7 g/dL (32.0-36.0); MCV 92.2 fL (80-100); Monocytes % 7.9 % (3.3-12.3); Neutrophils % 63.8 % (41.7-73.7); Platelets 209 thou/uL (152-406); RBC Red Blood Cell Count 5.09 M/uL (4.33-5.43); Red Cell Distribution Width 13.3 % (12.1-15.2)
[2023-12-18 06:52] LABS: Anion Gap 5.1 mEq/L (5.0-15.0); Magnesium 2.3 mg/dL (1.6-2.4); Phosphorus 2.9 mg/dL (2.5-4.9); Potassium 4.1 mEq/L (3.5-5.1)
--- NOTE | 2023-12-18 08:39 | P.DS ---
Admission Date: 12/16/23 Discharge Date: 12/18/23 Disposition: ROUTINE DISCHARGE Discharge Condition: GOOD Reason for Admission: Acute pancreatitis Brief History of Present Illness: Diagnosis Acute Pancreatitis Leukocytosis likely secondary to inflammation Lactic acidosis ALEKSANDER 2/2 dehydration Hyperglycemia Substance abuse Alcohol and marijuana abuse HTN/HLD Depression Global Amnesia HPI 12/16/23 Vaughn Pham is a 63 year old male with Pmhx pancreatitis, global amnesia, Hypertensive disorder, marijuana abuse, and alcohol abuse who presents with severe abdominal pain. He was recently discharged last week after being successfully treated for acute pancreatitis with a normal lipase and tolerating PO diet. He reports drinking wine last night and eating a regular meal for the first time since discharge which started his severe abdominal pain. Labroratory evaluation lipase > 500 , lactic 2.1, and WBC 18.6. CT abd/pelvis reports FINDINGS: The liver, spleen, pancreas, and adrenals appear unremarkable. Small bilateral renal cysts. No hydronephrosis. There is no evidence of diverticulitis. Normal appendix. Mild to moderate prostatic enlargement.. Small umbilical hernia. Spondylosis lower lumbar spine. Moderate amount of stool within the colon. IMPRESSION: Moderate amount of stool within the colon Initial vitals BP 180 / 117; Pulse 72; Resp 18; Temp 97.6; Pulse Ox 100% Vaughn will be admitted to hospitalist service for further treatment of pancreatitis. Hospital Course: Vaughn Pham is a pleasant 63 year old male with a past medical history sig nificant for pancreatitis, global amnesia, Hypertensive disorder, marijuana abuse, and alcohol abuse who was admitted to the [facility] on 12/16/23 for Acute pancreatitis. Vaughn Pham returned to the ED after being discharged a few days prior to arrival after recovering from pancreatitis. At that time, lipase returned to normal and pain had resolved. His at the bedside reports he drank wine and had his first regular meal since discharge the night before this new pancreatic attack. CT abd/pelvis indicated the pancreas as unremarkable. On this admission, his lipase was higher than before at 527, Glucose elevated, but triglycerides were normal. Aggressive hydration with normal saline was tolerated well. He remained NPO overnight then advanced to CLD. Abdominal pain decreased over two days, he remained afebrile, and tolerated diet advancement. Education was provided concerning a soft GI diet, refraining for alcohol and substance use such as marijuana and cigarettes. He is ambulating independently, tolerating FLD without abdominal pain, denies nausea/vomiting/diarrhea. On 12/18/23, Vaughn was seen on morning rounds and deemed medically stable for discharge. Vaughn was discharged with instructions to schedule follow-up appointments with PCP and Dr. Vaz. Physical Exam General: AAO x3, NAD, conversing wel HEENT: Atraumatic, Normocephalic Neck: Supple, 2+ carotid pulse no bruit Respiratory: Clear to auscultation bilaterally, Normal air movement, on room air Cardiovascular: Normal pulses, normal sinus rhythm, Normal S1 S2 Capillary refill: <2 Seconds Gastrointestinal: Soft and benign on palpation, NT/ND, active bowel sounds Musculoskeletal: No clubbing Integumentary: No rashes Neurological: Normal speech, Normal tone Vital Signs/Physical Exam: Temp Pulse Resp BP Pulse Ox 97.0 F 63 19 127/82 98 12/18/23 04:00 12/18/23 04:00 12/18/23 04:00 12/18/23 04:00 12/18/23 04:00 Laboratory Data at Discharge: WBC 10.40 thou/uL (4.3-10.9) 12/18/23 06:01 Hgb 15.4 g/dL (13.6-17.9) 12/18/23 06:01 Hct 46.9 % (39.6-49.0) 12/18/23 06:01 Plt Count 209 thou/uL (152-406) 12/18/23 06:01 Sodium 141 mEq/L (136-145) 12/18/23 06:01 Potassium 4.1 mEq/L (3.5-5.1) 12/18/23 06:01 BUN 12 mg/dL (7-18) 12/18/23 06:01 Creatinine 0.82 mg/dL (0.70-1.30) 12/18/23 06:01 Glucose 87 mg/dL (74-106) 12/18/23 06:01 Phosphorus 2.9 mg/dL (2.5-4.9) 12/18/23 06:01 Magnesium 2.3 mg/dL (1.6-2.4) 12/18/23 06:01 Total Bilirubin 0.8 mg/dL (0.2-1.0) 12/16/23 06:22 AST 18 U/L (15-37) 12/16/23 06:22 ALT 39 U/L (16-61) 12/16/23 06:22 Alkaline Phosphatase 73 U/L (45-117) 12/16/23 06:22 Triglycerides 97 mg/dL (<150) 12/16/23 06:22 Cholesterol 200 mg/dL (<200) 12/16/23 06:22 HDL Cholesterol 82 mg/dL (40-60) H 12/16/23 06:22 Cholesterol/HDL Ratio 2.44 12/16/23 06:22 Lipase 77 U/L (13-75) H 12/18/23 06:01 Home Medications: Atorvastatin Calcium 20 mg PO BEDTIME 12/12/23 Duloxetine HCl 30 mg PO DAILY 12/12/23 Ondansetron [Zofran (Odt)*] 4 mg PO Q6H PRN 7 Days #30 tab 12/12/23 Physician Discharge Instructions: 1. Please call and schedule a follow-up appointment with your PCP in 3-5 days - Please follow-up with your PCP for medication refills/adjustments 2. Please call and schedule a follow-up appointment with Dr. Vaz in 1-2 weeks 3. Continue Soft GI diet 4. No activity restrictions 5. Return to the ED if symptoms worsen Refrain from all alcohol to remain clear of exacerbation. Soft GI meaning easily digestable foods- please see printed information Diet: Soft GI Activity: Ad pattie Followup: Pacheco Vaz MD [ASSOCIATE-ACTIVE - CAN ADMIT] - 1-2 Weeks Tirso Vanegas MD [Primary Care Provider] - 1-2 Weeks
--- NOTE | 2023-12-18 16:43 | EKG ---
Test Date: 2023-12-16 Test Time: 06:20:57 Manager Photo: FATUMA MEASUREMENT RESULTS: Intervals: Rate: 80 AL: 116 QRSD: 84 QT: 392 QTc: 452 Causey: P: 41 AL: 116 QRS: 71 T: 61 INTERPRETIVE STATEMENTS: Normal sinus rhythm Normal ECG Compared to ECG 12/11/2023 21:52:51 Sinus arrhythmia no longer present Electronically Signed On 12-18-23 16:34:38 CDT by Henri Biggs
== END 2023-12-18 10:35 | disposition home or self-care (01) | DRG 439 ==
LOC: ER 06:10 → ERHOLD 09:33 → 4TH 13:07
PROVIDERS: ADMIT Internal Medicine; ATTEND Internal Medicine
DX: K85.00 Idiopathic acute pancreatitis without necrosis or infection (principal); E87.20 Acidosis, unspecified; N17.9 Acute kidney failure, unspecified; E86.0 Dehydration; I10 Essential (primary) hypertension; K59.00 Constipation, unspecified; F32.A Depression, unspecified; E78.5 Hyperlipidemia, unspecified; F12.10 Cannabis abuse, uncomplicated; F10.10 Alcohol abuse, uncomplicated; R41.3 Other amnesia; R73.9 Hyperglycemia, unspecified; Z79.899 Other long term (current) drug therapy
CPT/HCPCS: 36415; 74177; 80048; 80053; 80061; 81001; 83605; 83690; 83735; 84100; 84484; 85025; 93005; 96361; 96365; 96375; 99285; J0696; J1170; J1644; J2405; J7030; Q9967